=== PATIENT | male | born 1945 | race Native Hawaiian/Other Pacific Islander ===

== ENCOUNTER 2018-12-08 11:01 | Outpatient (CLI) | payer MEDICARE | END 2018-12-08 11:02 | disposition home or self-care (01) | LOC: C.PAT 11:01 | DX: R97.20 Elevated prostate specific antigen [PSA] (principal) ==

== ENCOUNTER 2018-12-09 10:59 | Inpatient (IN) | payer MEDICARE ==
[2018-12-09 12:08] VITALS: BMI 26.7
[2018-12-09] MEDS ORDERED: Midazolam 2 MG/2 ML VIAL ONE (13:32)
[2018-12-09] MEDS ORDERED: Propofol 10 mg/ml Inj (20 ML) ONE (13:32)
[2018-12-09] MEDS ORDERED: cefTRIAXone 1 gm 1 GM/100 ML BAG IVPB ONE (13:41)
[2018-12-09] MEDS ORDERED: Lidocaine 2% Jelly (Uro-Jet) ONE (13:41)
[2018-12-09] MEDS ORDERED: Ciprofloxacin 400mg/200ml D5W 400 MG/200 ML BAG IVPB ONE (15:00)
[2018-12-09] MEDS ORDERED: Oxycodone/Acetaminophen 5/325 mg Tab PO PRN (15:00)
[2018-12-09] MEDS: HYDROmorphone 0.5 mg/0.5 ml ISec IVP PRN ×2 (15:08→15:46)
[2018-12-09] MEDS: Gentamicin 80 mg in 0.9% NS 80 MG/100 ML BAG IVPB SCH ×2 (15:11→22:49)
[2018-12-09 18:39] VITALS: RESP 20
[2018-12-10] MEDS: Gentamicin 80 mg in 0.9% NS 80 MG/100 ML BAG IVPB SCH (06:31)
[2018-12-10 08:58] VITALS: O2SAT 95
[2018-12-10] MEDS ORDERED: Magnesium Hydroxide Susp 30 ml UD PO ONE (12:13)
[2018-12-10] MEDS ORDERED: Lidocaine 2% Jelly (Uro-Jet) TOP PRN (12:15)
[2018-12-10] MEDS ORDERED: Lidocaine 2% Jelly (30 ml) TOP PRN (13:15)
[2018-12-10 16:17] VITALS: BP 124/75; PULSE 84; TEMP 100.2
--- NOTE | 2018-12-12 23:41 | PCM.URO ---
Urology Progress Note - General General: Tolerating Diet - Subjective Abdominal Pain: Yes (mild SP pain) Flank Pain: No Nausea: No Vomiting: No Voiding Well: No Hematuria: Yes (mild) Dsypnea: No Chest Pain: No Fever & Chills: No - Physical Exam Abdominal Exam: Soft, Non-Tender, Non-Distended Back: No CVA Tenderness Genitalia: Without Inflammation Urinary Catheter Draining Well: Yes Urine Color: [place] Extremities: Normal: Bilateral - Male Phallus: Normal Scrotum: Normal - Plan Pulmonary Toilet: Yes Catheter Care: Yes Ambulation - Out of Bed: Yes Intake & Output: Yes Additional Information: IMP: progressing well. P/Rec: nielson cath to leg bag. ambulatory. home today outpt f/u. laxative. discussed w pt and with nursing staff - Date & Time of Note Date: 12/10/18 Time: 11:40
--- NOTE | 2018-12-13 05:35 | HP ---
UROLOGY ADMISSION HISTORY AND PHYSICAL REASON FOR ADMISSION: Treatment of retention. HISTORY OF PRESENT ILLNESS: Mr. Zarco is a very pleasant gentleman. He is 73 years old, date of is 1945. Being boarded now for a photovaporization, GreenLight laser energy, and transurethral resection of the prostate for urinary retention recurrent episodes. The patient has failed multiple voiding trials. We had tried microwave thermal therapy. This did not work for the patient. We have tried different options. We also discussed with the patient giving just more time. We discussed intermittent catheterization. We discussed this procedure. We discussed open procedure. We discussed further diagnostic studies including urodynamics. We discussed second opinion. After discussed multiple options, our recommendation is to do the above-listed procedure which is photovaporization, GreenLight laser. He has a visually occlusive prostate. There were no suspicions other than underlying diabetes, having any neurogenic components in his bladder. It is a longstanding procedure. The patient has previously also had elevated PSA. We did discuss the options regarding possibility for prostate cancer. Of course, this exists in any 73-year-old especially with retention, but the most likely treatment outcome would be more either observation or radiation and not a surgical radical prostatectomy, and right now has acute problem with this retention which we are looking to get the catheter out. Although I did discuss with him various options at length. For today, the patient is being brought in for photovaporization, GreenLight laser energy, transurethral resection of the prostate. PAST MEDICAL AND SURGICAL HISTORY: As listed in the chart. We had medical clearance. See the notes in the chart. His medical doctor is . REVIEW OF SYSTEMS: As listed above. No weight loss, chest pain, or shortness of breath. He just pretty has no evidence of catheter. Socially, otherwise essentially remarkable. We just spoke to his family also regarding the patient. MEDICATIONS: See the chart. ALLERGIES: LISTED ABOVE. PHYSICAL EXAMINATION: GENERAL: A well-nourished male, in no apparent distress. VITAL SIGNS: Within normal limits include in the chart. LUNGS: Clear. ABDOMEN: Overall soft, nontender. No flank mass appreciated. GENITOURINARY: Normal phallus without discharge. No testicular mass. RECTAL: A 30 + g prostate. It is relatively soft and smooth. LABORATORY DATA: See the chart. PSA noted. BUN and creatinine noted. DIAGNOSES: Voiding dysfunction, urinary retention, recurrent bouts of urinary retention, failed thermal therapy treatment. ASSESSMENT AND PLAN: A 73-year-old gentleman with longstanding obstructive and irritative complaints, more obstructive in nature. We have done cystoscopy. We have done other. See the previous workup. We discussed options with the patient. After discussing all the options, risks, benefits, and alternatives, the plan from Urology standpoint is as follows: We are going to provide antibiotic prophylaxis. We are going to provide a GreenLight laser energy, photovaporization of the prostate, and resection of the prostate. Then, further plans will follow. Cecil Degroot MD
--- NOTE | 2018-12-13 06:14 | PN ---
DATE: 12/10/2018 PROGRESS NOTE/DISCHARGE NOTE SUBJECTIVE: See history and physical and consultation. The patient is seen today by Dr. Mala Degroot. The patient remains stable. We discussed options regarding his Lindquist and discharge home. No CBI, but the operation itself went well and he is fine. We are going to discharge him with Lindquist for drainage, I spoke to the nurse a couple of times about the leg bag. The patient was seen today by Dr. Mala Degroot. So for now, we are going to discharge the patient home in stable condition and then make further plans. I do want to make a mention, I spoke to the patient subsequently during the course. He is doing well and he is discharged home with the Lindquist. We are going to remove the Lindquist on 12/13/2018. Cecil Degroot MD
--- NOTE | 2018-12-13 06:21 | OP ---
PROCEDURE DATE: 12/09/2018 UROLOGY OPERATIVE REPORT PREOPERATIVE DIAGNOSES: Recurrent episodes of urinary retention, elevated prostate-specific antigen, voiding dysfunction, urinary retention, hematuria, failed voiding trials, and failed thermal therapy treatments. POSTOPERATIVE DIAGNOSES: Recurrent episodes of urinary retention, elevated prostate-specific antigen, voiding dysfunction, urinary retention, hematuria, failed voiding trials, and failed thermal therapy treatments. PROCEDURES: Photovaporization, GreenLight laser energy, and transurethral resection of the prostate. SURGEON: Cecil Degroot MD BLOOD LOSS: Less than 25 mL. COMPLICATIONS: There were no complications. INDICATIONS: See history and physical for further details. A very pleasant gentleman, 73 years old, with failed voiding trial, the workup included. We discussed options, risks, benefits and alternatives, again the possibility for underlying prostate cancer as well as the possibility for neurogenic bladder, and all of the possibility with the patient. We explained the patient risks and benefits. We discussed ejaculatory dysfunction, retrograde ejaculation particularly occurring in about 30% people and most often being permanent, and not to expect ejaculation. We discussed TICU. We discussed second opinion. We discussed failed therapy. After discussion of all those, we do recommend the procedure. The benefits were discussed at length, the benefit of urinating with a good strong flow of urine and having an open prostate. We did discuss some of the risks associated and the benefits associated and some of the time it is healing given the laser treatment. After discussing all risks at great length, we discussed the patient and ejaculatory dysfunction, particularly retrograde ejaculation, etc. The potential even for rectal dysfunction associated with such ejaculatory dysfunction. All of these were addressed at length. After discussing all that, we have proceeded with the above procedures. After discussing risks, benefits and alternatives, we made arrangements today. UROLOGY OPERATIVE FINDINGS: Specifically, the patient has a very visually occlusive prostate to begin with, and by the termination of the patient's procedure, it is wide opened. The patient is wide opened from the verumontanum, it is extremely well opened. The procedure went extremely well. See the body of the report that went extremely well. To begin, there was visually occlusive about 3 cm prostate. By the termination, it was nicely wide opened. The remainder of the findings, normal anterior urethra with no stricture. The veru is visually occlusive, and the bladder itself is not with trabeculation but all relatively within normal limits. DESCRIPTION OF PROCEDURE: After obtaining informed consent, the patient was placed on the table. Routine monitors were placed. Time-out was called to confirm the patient and positioning. Risks and benefits were discussed at length. Antibiotic prophylaxis was used. The patient was in a lithotomy position. We introduced the cystoscope under direct vision using visual obturator and we inspected carefully. Anterior urethra was normal. No strictures. The verumontanum is very visually occlusive. Within normal limits for age. Multiple pictures were taken. Moderate intravesical component. We both identified the orifices, even stayed far away from them. We now introduced the fiber. We started 80 canales and we worked 5 to 7, any steps along the way we really achieved nice hemostasis and had no opening. We then opened 7 to 11, and then 5 to 1. We then just persistently quickly, all under good control. We had good control and there was no bleeding. We worked on bladder neck. We worked our way back more distally. We just worked proximally and distally. We worked our way all the way down 7 to 11 and then 5 to 1. In that order. Eventually an each carefully noted moving far away from, but were nicely wide opened. closed. We turned our attention by clipping the camera up between 11 and 1. I was just taking anterior commissure. We nicely opened it gently, carefully, meticulously but we were really able to go nicely from 11 to 1, so it is nearly extremely wide open. We inspected the bladder carefully. The verumontanum was grossly intact. The pictures were taken and saved. We opened very nicely all around lateral lobes and bladder neck that all wide opened. We inserted Lindquist catheter via urethra. We took a picture actually that is all being inside. We took the picture the patient with full bladder. Urinating the good strong, really strong flow. We inserted the Lindquist catheter via urethra with about 50 mL with moderate amount of traction. The patient was brought to the recovery room in stable condition, having tolerated the procedure without complication. ADDENDUM: After the procedure, the patient was having some significant amount of concerns with catheter care and even though we had discussed before catheter care he had, he is worrying about the bleeding. We discussed at length. But given the lateness of the hour, the patient's plan, etc., we discussed options with him directly. We decided the patient will be admitted for observation and then eventually will be discharged home. Cecil Degroot MD
== END 2018-12-10 17:09 | disposition home or self-care (01) | DRG 667 ==
LOC: C.SDS 10:59 → C.9E 16:02 → C.9P 16:12 → C.6T 18:11
PROVIDERS: ADMIT Urology; ATTEND Urology
PROC: 0VB08ZZ Excision of Prostate, Via Natural or Artificial Opening Endoscopic (ICD-10-PCS; principal; 2018-12-09 13:00)
DX: R33.9 Retention of urine, unspecified (principal); R97.20 Elevated prostate specific antigen [PSA]; E11.9 Type 2 diabetes mellitus without complications